=== PATIENT | male | born 1935 | race Caucasian/White ===

== ENCOUNTER 2016-04-12 13:56 | Emergency (ER) | payer MEDICARE ==
[2016-04-12 14:14] VITALS: TEMP 98.4; BMI 31.4
--- NOTE | 2016-04-12 15:20 | EDPRACDOC ---
- General Chief Complaint: Head Injury Stated Complaint: FELL X 2 WITH BLUISH DISCOLORATION LT ORBITAL AREA Time Seen by Provider: 04/12/16 15:18 Information Source: Patient - History of Present Illness Onset: SATURDAY HPI: SATURDAY FELL OUT OF BED, HIT FACE, HEAD. ALSO C/O NECK PAIN. MODERATED TO SEVERE. SENT BY URGENT CARE FOR EVAL. TAKES 81 MG ASPIRIN DAILY. SOME DIZZINESS. 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 Allergies/Adverse Reactions: Allergies niacin Allergy (Verified 04/12/16 14:49) See Comments [place] Home Medications: Ambulatory Orders Irbesartan 300 mg PO DAILY 05/22/13 Metoprolol Tartrate 50 mg PO BID 05/22/13 Simvastatin 80 mg PO QHS 05/22/13 Multivitamin [One Daily] 1 tab PO DAILY 09/23/15 Aspirin [Aspirin EC] 81 mg PO DAILY #1 11/15/15 Calcium Carbonate + Vitamin D [Oscal with Vitamin D] 500 mg PO BIDLS #60 tablet 11/15/15 Prednisone [Deltasone] 20 mg PO BID #10 tablet 04/12/16 Tramadol HCl [Ultram] 50 - 100 mg PO Q6 #15 tablet 04/12/16 ED Past Medical History - History Reviewed Yes Nurses notes reviewed and agree except as marked - Patient Medical History Cardiac History: Reports: Coronary Artery Disease, Hypertension, CABG (3 VESSEL 2004), Hypercholesterolemia, Syncope (DUE TO HEAT LAST EPISODE 2YEARS AGO) Musculoskeletal History: Reports: Arthritis Psychological History: Reports: Anxiety. Denies: Depression, Substance Use Disorder Surgical History: Reports: Cholecystectomy, CABG (3 VESSEL 2004), Hernia Surgery (UMBILICAL HERNIA REPAIR) - Family Medical History Reports: Hypertension (BROTHER), Diabetes (BROTHER), Cancer (BROTHER LUNG CA), Cardiac Disorders (BROTHER). Denies: Stroke - Social Medical History Smoking Status: Never smoker Social History: Denies: Substance Use Disorder EDM Review of Systems - Review of Systems ROS Negative Except as Marked: Yes All systems reviewed and were negative except as marked Constitutional: No Symptoms Reported Eyes: No Symptoms Reported Throat: No Symptoms Reported Nose: No Symptoms Reported Respiratory: No Symptoms Reported Cardiovascular: No Symptoms Reported Gastrointestinal: No Symptoms Reported Genitourinary: No Symptoms Reported Integumentary: No Symptoms Reported Allergic/Immunologic: No Symptoms Reported - Physical Exam Constitutional: Alert (Awake), No apparent distress Oriented to: Time, Person, Place Last recorded Vital Signs: Last Vital Signs Temp 98.4 F 04/12/16 14:11 Pulse 61 04/12/16 14:11 Resp 18 04/12/16 14:11 BP 154/72 04/12/16 14:11 Pulse Ox 96 04/12/16 14:11 Oxygen Pulse Oxygen Saturation 96 O2 Device Room Air Oxygen Flow Rate Fraction of Inspired Oxygen ( FIO2) - HEENT Head: Normal ( normocephalic) Eye Exam: Normal (PERRL, EOMI, Sclera white), Other (LEFT PERIORBITAL ECCHYMOSIS ) Oropharynx: Normal (Pharynx:Moist without exudate,Gums-no swelling) Nose: No Symptoms Reported (septum midline) Neck: Limited ROM, Other (TTP B/L PARASPINAL AND MIDLINE.) - Respiratory/Cardiovascular Respiratory: Normal - CTA (BBS clear to auscultation without adventitious sounds ) Cardiovascular: Normal (RRR without murmur, gallop or rub) - GI Auscultation: Normal (NABS) Palpation: Normal (Soft,No rebound or guarding, non distended) Tenderness: Non tender High's Sign: Negative - Musculoskeletal Back: Normal (Non-Tender) Extremities: Normal (Normal tone, Pulses 2+ No cyanosis or edema, FROM), Other ( 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 PAIN WITH ABDUCTION RIGHT ARM.) - Integumentary Skin: Normal, Warm, Dry Lymphatics: Normal (no adenopathy) - Neurologic Memory Impaired: Normal Motor Function: Normal (Normal tone, Pulses 2+ No cyanosis or edema, FROM) Cranial Nerve: Normal (CN II-X11 intact sensation, strength 5/5) Cerebellar: Normal Mood Description: Normal Perception: Normal Decision Time to Discharge: 16:25 - Departure Yes I personally saw and evaluated the patient. Disposition: Home Condition: Stable Final Diagnosis: Accidental fall Facial contusion Qualifiers: Encounter type: initial encounter Qualified Code(s): S00.83XA - Contusion of other part of head, initial encounter Cervical strain, acute Qualifiers: Encounter type: initial encounter Qualified Code(s): S16.1XXA - Strain of muscle, fascia and tendon at neck level, initial encounter Education/Counseling Given To: Patient Education/Counseling Given Regarding: Diagnosis Referrals: Krishna Kate MD [Primary Care Provider] - One Week Dale Bowser MD [Staff Physician] - One Week Prescriptions: Prednisone [Deltasone] 20 mg PO BID #10 tablet Tramadol HCl [Ultram] 50 - 100 mg PO Q6 #15 tablet
--- NOTE | 2016-04-12 15:39 | DIRPT ---
CLINICAL DATA: Status post fall from bed 5 days ago with discoloration around the left orbit and left forehead laceration. Dizziness and headache. EXAM: CT HEAD WITHOUT CONTRAST CT MAXILLOFACIAL WITHOUT CONTRAST TECHNIQUE: Multidetector CT imaging of the head and maxillofacial structures were performed using the standard protocol without intravenous contrast. Multiplanar CT image reconstructions of the maxillofacial structures were also generated. COMPARISON: Limited correlation made with cervical myelogram CT 07/28/2004. FINDINGS: CT HEAD FINDINGS No evidence of acute intracranial hemorrhage, mass lesion, brain edema or extra-axial fluid collection. The ventricles and subarachnoid spaces are appropriately size for age. There is nodes of hydrocephalus or acute infarct. There is a left frontal scalp hematoma without evidence of underlying calvarial fracture. CT MAXILLOFACIAL FINDINGS As above, focal left frontal scalp hematoma with mild preseptal swelling in the left orbit. There is no evidence of postseptal hematoma or globe injury. The optic nerves and extraocular muscles appear normal. The paranasal sinuses are clear without air-fluid levels. The mastoid air cells and middle ears are clear. No evidence of acute maxillofacial fracture. There are advanced degenerative changes at the C1-2 articulation with erosions of the odontoid process. Patient is status post mid cervical fusion, incompletely visualized. IMPRESSION: 1. Left frontal scalp subcutaneous hematoma with mild swelling in the preseptal aspect of the left orbit. 2. No evidence of postseptal hematoma or globe injury. 3. No acute intracranial findings. No evidence of facial or calvarial fracture. Electronically Signed By: José Lee M.D. On: 04/12/2016 15:36
[2016-04-12] MEDS ORDERED: TRAMADOL HCL 50 MG TAB PO ONE (15:56)
[2016-04-12 15:57] VITALS: PULSE 60
--- NOTE | 2016-04-12 16:07 | DIRPT ---
CLINICAL DATA: Posterior neck pain and right arm weakness after falling from bed 5 days ago. History of cervical fusion. EXAM: CT CERVICAL SPINE WITHOUT CONTRAST TECHNIQUE: Multidetector CT imaging of the cervical spine was performed without intravenous contrast. Multiplanar CT image reconstructions were also generated. COMPARISON: Cervical spine radiographs 06/07/2005. FINDINGS: The cervical spine demonstrates straightening with a grade 1 anterolisthesis at C2-3, C3-4 and C4-5. Patient is status post ACDF from C5 through C7 with an anterior plate, screws and intervertebral bone plugs. Interbody fusion is solid. There is no evidence of acute fracture or traumatic subluxation. There are degenerative changes throughout the cervical spine with uncinate spurring and facet hypertrophy. Facet disease appears greatest on the left at C2-3 and C3-4. There is resulting foraminal narrowing, greatest on the left at C3-4. Posterior osteophytes contribute to mild residual spinal stenosis and asymmetric right foraminal narrowing at C5-6. There are erosions of the odontoid process without widening of the predental space. No acute soft tissue findings demonstrated. Carotid arterial calcifications are noted bilaterally. IMPRESSION: 1. No evidence of acute cervical spine fracture, traumatic subluxation or static signs of instability. 2. Previous C5-7 ACDF with solid interbody fusion. 3. 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 The foraminal narrowing appears worst on the left at C3-4. Electronically Signed By: José Lee M.D. On: 04/12/2016 16:05
[2016-04-12 16:22] VITALS: BP 168/81
== END 2016-04-12 16:45 | disposition home or self-care (01) ==
LOC: ED 13:56
DX: S00.83XA Contusion of other part of head, initial encounter (principal); S16.1XXA Strain of muscle, fascia and tendon at neck level, initial encounter; W06.XXXA Fall from bed, initial encounter; R51 Headache
CPT/HCPCS: 70450; 70486; 72125; 99284; A9270; J3490

== ENCOUNTER 2016-05-09 18:44 | Emergency (ER) | payer MEDICARE ==
[2016-05-09 18:54] VITALS: TEMP 98; BMI 30.1
--- NOTE | 2016-05-09 19:15 | EDPRACDOC ---
- General Information Information Source: Patient Home Medications: Home Medications Irbesartan 300 mg PO DAILY 05/22/13 Metoprolol Tartrate 50 mg PO BID 05/22/13 Simvastatin 80 mg PO QHS 05/22/13 Multivitamin [One Daily] 1 tab PO DAILY 09/23/15 Aspirin [Aspirin EC] 81 mg PO DAILY #1 11/15/15 Calcium Carbonate + Vitamin D [Oscal with Vitamin D] 500 mg PO BIDLS #60 tablet 11/15/15 Cephalexin Monohydrate [Keflex] 500 mg PO Q6H #28 cap 05/09/16 Escitalopram Oxalate [Lexapro] 10 mg PO QHS 05/09/16 Hydrocodone Bit/Acetaminophen [Hydrocodon-Acetaminophen 5-325] 1 tab PO Q6 PRN # 15 tab 05/09/16 Allergies/Adverse Reactions: Allergies Allergy/AdvReac Type Severity Reaction Status Date / Time niacin Allergy See Verified 05/09/16 18:53 Comments - History of Present Illness 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 PT DENIES LOC, NO OTHER INJURY, NO N/V/D. - Location RIGTH 3RD FINGER Mechanism: Reports: Blunt Trauma RIGHT 4TH FINGER Mechanism: Reports: Blunt Trauma - Tetanus Status Last Tetanus: No - Pain Pain Severity: Moderate Bleeding: Reports: Controlled Associated Signs & Symptoms: Denies: Loss of Consciousness, Loss of Function, Nausea, Vomiting ED Past Medical History - History Reviewed Yes Nurses notes reviewed and agree except as marked - Patient Medical History Cardiac History: Reports: Coronary Artery Disease, Hypertension, CABG (3 VESSEL 2004), Hypercholesterolemia, Syncope (DUE TO HEAT LAST EPISODE 2YEARS AGO) Musculoskeletal History: Reports: Arthritis Psychological History: Reports: Anxiety. Denies: Depression, Substance Use Disorder Surgical History: Reports: Cholecystectomy, CABG (3 VESSEL 2004), Hernia Surgery (UMBILICAL HERNIA REPAIR) - Family Medical History Reports: Hypertension (BROTHER), Diabetes (BROTHER), Cancer (BROTHER LUNG CA), Cardiac Disorders (BROTHER). Denies: Stroke - Social Medical History Smoking Status: Never smoker Social History: Denies: Other Substance Use ETOH: None Substance Abuse: None EDM Review of Systems - Review of Systems Constitutional: negative: Chills, Fever Eyes: negative: Blurred Vision, Double Vision Ears: negative: Drainage Throat: negative: Pain Nose: negative: Bleeding Cardiovascular: negative: Syncope Gastrointestinal: negative: Nausea, Vomiting Neurological: negative: Dizziness, Headache Musculoskeletal: Hand Integumentary: Wound - Physical Exam Constitutional: Alert (Awake), No apparent distress Oriented to: Time, Person, Place Last recorded Vital Signs: Last Vital Signs Temp 98 F 05/09/16 18:50 Pulse 68 05/09/16 18:50 Resp 18 05/09/16 18:50 BP 157/73 05/09/16 18:50 Pulse Ox 96 05/09/16 18:50 Oxygen Pulse Oxygen Saturation 96 O2 Device Room Air Oxygen Flow Rate Fraction of Inspired Oxygen ( FIO2) - HEENT Head: Normal ( normocephalic) - Musculoskeletal Musculoskeletal Comment: RIGHT HAND: NO SWELLING OR DEFORMITY, FROM OF HAND AND ALL DIGITS, STRENGTH 5/ 5 ALL DIGITS - Integumentary Skin: Warm, Dry, Other (RIGHT 3RD FINGER, VOLAR: 2 CM LINEAR LAC AT PIP, THROUGH SUBCUT TISSUE, FLEXOR TENDON EXPOSED, INTACT RIGHT 2ND FINGER, VOLAR: 2 CM LINEAR LAC AT PIP, THROUGH SUBCUT TISSUE, FROM, FLEXOR TENDON EXPOSED, INTACT ) - Neurologic Memory Impaired: Normal Motor Function: Normal (Normal tone, Pulses 2+ No cyanosis or edema, FROM) Cranial Nerve: Normal (CN II-X11 intact sensation, strength 5/5) Cerebellar: Normal Mood Description: Normal Perception: Normal ED Procedures - Suture/Laceration RIGHT 2ND FINGER Wound Length (cm): 3 Wound's Depth, Shape: linear Wound Explored: clean Irrigated w/ Saline (ccs): 20 Betadine Prep?: Yes Anesthesia: 1% Lidocaine Volume Anesthetic (ccs): 5 Wound Debrided: minimal Wound Margins: Revised Wound Repaired With: Sutures Suture Size/Type: 4:0, prolene Number of Sutures: 8 Layer Closure?: No Sterile Dressing Applied?: Yes Splint Applied?: Yes RIGHT 3RD FINGER Wound Length (cm): 3 Wound's Depth, Shape: linear Wound Explored: clean Irrigated w/ Saline (ccs): 20 Betadine Prep?: Yes Anesthesia: 1% Lidocaine Volume Anesthetic (ccs): 5 Wound Debrided: minimal Wound Margins: Revised Wound Repaired With: Sutures Suture Size/Type: 4:0, prolene Number of Sutures: 9 Layer Closure?: No Sterile Dressing Applied?: Yes Splint Applied?: Yes - Differential Diagnosis Fracture, Laceration Decision Time to Discharge: 21:03 - Departure Disposition: Home Condition: Stable Final Diagnosis: LAC RIGHT 2ND FINGER, 3 CM, SIMPLE, LAC RIGHT 3RD FINGER, 3 CM, SIMPLE Instructions: Laceration (ED) Education/Counseling Given To: Patient Education/Counseling Given Regarding: Diagnosis, Treatment, Prognosis, Follow Up Referrals: Krishna Kate MD [Primary Care Provider] - One Week Prescriptions: New Cephalexin Monohydrate [Keflex] 500 mg PO Q6H #28 cap Hydrocodone Bit/Acetaminophen [Hydrocodon-Acetaminophen 5-325] 1 tab PO Q6 PRN #15 tab PRN Reason: Pain No Action Simvastatin 80 mg PO QHS Irbesartan 300 mg PO DAILY Metoprolol Tartrate 50 mg PO BID Multivitamin [One Daily] 1 tab PO DAILY Aspirin [Aspirin EC] 81 mg PO DAILY #1 Calcium Carbonate + Vitamin D [Oscal with Vitamin D] 500 mg PO BIDLS #60 tablet Escitalopram Oxalate [Lexapro] 10 mg PO QHS Additional Instructions: Keep wound clean and dry, wash daily with soap and water, cover with antibiotic ointment and clean bandage. Have sutures removed in 10-14 days, use Tylenol or Motrin as needed for pain. Return to the ED for any worsening symptoms or concerns.
[2016-05-09] MEDS ORDERED: LIDOCAINE 2% 5 ML (PRESERVATIVE FREE) VIAL INF ONE (19:18)
[2016-05-09] MEDS ORDERED: DIPHTHERIA AND TETANUS (ADULT) 0.5 ML SYR IM ONE (19:18)
[2016-05-09] MEDS ORDERED: LIDOCAINE 2% 5 ML (PRESERVATIVE FREE) VIAL ONE (20:09)
[2016-05-09] MEDS ORDERED: CEPHALEXIN 500 MG CAP PO ONE (21:04)
[2016-05-09] MEDS ORDERED: HYDROCODONE 5 MG/ACETAMIN 325 MG TAB PO ONE (21:04)
[2016-05-09 21:34] VITALS: BP 149/74; PULSE 72
== END 2016-05-09 21:32 | disposition home or self-care (01) ==
LOC: ED 18:44
DX: S61.210A Laceration without foreign body of right index finger without damage to nail, initial encounter (principal); S61.212A Laceration without foreign body of right middle finger without damage to nail, initial encounter; W19.XXXA Unspecified fall, initial encounter; Y93.89 Activity, other specified; Y99.0 Civilian activity done for income or pay; Z23 Encounter for immunization
CPT/HCPCS: 12002; 90471; 90714; 99283; A9270; J2001; J3490